=== PATIENT | male | born 1990 | race Caucasian/White ===

== ENCOUNTER 2024-08-17 21:46 | Emergency (ER) | payer MEDICAID, SELFPAY ==
[2024-08-17 22:07] VITALS: BP 126/79; PULSE 75; RESP 20; TEMP 36.8; O2SAT 95; BMI 29.0
[2024-08-17 23:58] VITALS: BP 124/77; PULSE 67; RESP 16; TEMP 36.8; O2SAT 97
[2024-08-18] MEDS: Lidocaine HCl 1%/Epi 1:100,000 10 ML VIAL INFILTRATI (01:34)
--- NOTE | 2024-08-18 01:46 | ED.DENTAL ---
HPI - Dental/Oral General Chief complaint: Dental/Oral Stated complaint: left side tooth abscess Time Seen by Provider: 08/18/24 00:38 Source: patient Mode of arrival: ambulatory Limitations: no limitations History of Present Illness ED Provider: rei HPI Narrative: Patient with broken right upper 2nd molar tooth for a while comes here for pain in the tooth in the gum area for last few days Related Data Previous Rx's ?Medication ?Instructions ?Recorded oxycodone 5 mg tablet 5 mg PO Q6H PRN pain #12 tabs 08/18/24 penicillin V potassium 500 mg 500 mg PO QID #40 tabs 08/18/24 tablet Allergies Allergy/AdvReac Type Severity Reaction Status Date / Time No Known Allergies Allergy Verified 08/17/24 22:08 Review of Systems Review of Systems: Yes all other systems are reviewed and are negative [facility] Social History Social History Advance Directives: No Advance Directives Information Provided: Yes Do you have a plan to hurt others: No Plan Physical Exam Vital Signs: Vital Signs: Last Vital Signs Temp 98.2 F 08/18/24 02:08 Pulse 67 08/18/24 02:08 Resp 16 08/18/24 02:08 BP 124/77 08/18/24 02:08 Pulse Ox 97 08/18/24 02:08 O2 Del Method Room Air 08/18/24 02:08 BMI result Body Mass Index 29.0 HEENT: Other: tooth # 12 apical abscess and tooth prior fractured, fragment remians, 13 bad tooth Teeth image: 1. Tenderness in the tooth 2 which is broken only base was visible no significant fluctuant swelling Medications Administered Discontinued Medications Generic Name Dose Route Start Last Admin Trade Name Freq PRN Reason Stop Dose Admin Lidocaine/Epinephrine 10 ml 08/18/24 01:33 08/18/24 01:34 Lidocaine Hcl 1%/Epi 1:100,000 10 Ml Vial INFILTRATI 08/18/24 01:34 10 ml ONCE ONE Administration Oxycodone HCl 5 mg 08/18/24 01:46 08/18/24 01:54 Oxycodone Hcl Immed Release 5 Mg Tablet PO 08/18/24 01:47 5 mg ONCE ONE Administration Penicillin V Potassium 500 mg 08/18/24 01:49 08/18/24 01:54 Penicillin V Potassium 250 Mg Tablet PO 08/18/24 01:50 500 mg ONCE ONE Administration Medical Decision Making Medical Decision Making MDM Narrative: abscess Discharge Plan Discharge Clinical Impression: Dental abscess Patient Disposition: Home, Self-Care Instructions: Dental Abscess (ED), Abscess Incision and Drainage (DC) Additional Instructions: You have multiple teeth that are infected. You had an abscess within the gumline above the tooth that was drained. See home care instructions. Take the penicillin as directed. Use oxycodone as needed for pain. To note, this medication can be constipating, take an [id number] stool softener while taking the medication. You can alternate between the use of ibuprofen 600 mg taken every 6 hours with food. You need to see a dentist BERNIE. Prescriptions: New penicillin V potassium 500 mg tablet 500 mg PO QID Qty: 40 0RF oxycodone 5 mg tablet 5 mg PO Q6H PRN (Reason: pain) Qty: 12 0RF Rx Instructions: Partial Fill upon patient request. Stand Alone Forms: Work/School Release Interventions: ED Discharge Assessment Last Done: 08/18/24 02:08 Discharge Date/Time: 08/18/24 02:08 Print Language: Turkmen
[2024-08-18] MEDS: oxyCODONE HCl Immed Release 5 MG TABLET PO (01:54)
[2024-08-18] MEDS: Penicillin V Potassium 250 MG TABLET 500 MG PO (01:54)
[2024-08-18 02:08] VITALS: BP 124/77; PULSE 67; RESP 16; TEMP 36.8; O2SAT 97
== END 2024-08-18 02:08 | disposition home or self-care (01) ==
PROVIDERS: Emergency Provider Internal Medicine
DX: K04.7 Periapical abscess without sinus (principal)
CPT/HCPCS: 99283; J2004